=== PATIENT | female | born 1955 | race Two or more races ===

== ENCOUNTER 2024-08-29 14:58 | Emergency (ER) | payer MEDICARE, MEDICAID ==
[~2024-08-29] VITALS: Ht 152.4 cm; Wt 56.7 kg
[2024-08-29] MEDS ORDERED: HYDROCODONE/APAP 5/325MG TABLET ONE (17:05)
[2024-08-29] MEDS ORDERED: IBUPROFEN 600 MG TABLET ONE (17:06)
[2024-08-29] MEDS: IBUPROFEN 600 MG TABLET PO ONE (17:09)
[2024-08-29] MEDS: HYDROCODONE/APAP 5/325MG TABLET PO ONE (17:10)
[2024-08-29] MEDS ORDERED: IBUP-1490 PO (17:54)
[2024-08-29 18:08] VITALS: BP 122/70; TEMP 98.8; O2SAT 98
== END 2024-08-29 18:08 | disposition home or self-care (01) ==
LOC: ER 15:06
DX: S76.312A Strain of muscle, fascia and tendon of the posterior muscle group at thigh level, left thigh, initial encounter (principal); Z88.0 Allergy status to penicillin; W01.0XXA Fall on same level from slipping, tripping and stumbling without subsequent striking against object, initial encounter; Y93.89 Activity, other specified; Y92.89 Other specified places as the place of occurrence of the external cause; Y99.8 Other external cause status
CPT/HCPCS: 73552